=== PATIENT | male | born 1950 | race Caucasian/White ===

== ENCOUNTER 2017-06-23 10:31 | Inpatient (IN) | payer OTHER ==
[2017-06-23 11:20] LABS: PLATELET COUNT 276 10^3/uL (150-400)
--- NOTE | 2017-06-23 13:02 | EDPHY ---
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 The patient is fitted with a prosthetic device. He presents to the ED with complaints of increased pain and irritation to his left lateral tib-fib area. The patient reports that he believes the area has become inflamed and irritated secondary to his device not fitting properly. The patient reportedly is wearing multiple socks in order to achieve a good fit. The patient reports that he is currently in between primary care providers. He has a number of chronic medical problems and reportedly is chronically anticoagulated. The patient denies a history of fall or trauma. He denies fever. He denies cough, congestion or additional complaints of rash or arthralgias. REVIEW OF SYSTEMS: A comprehensive 10 point review of systems is otherwise negative aside from elements mentioned in the history of present illness. Source: Patient Exam Limitations: No limitations - Personal History Current Tetanus Diphtheria and Acellular Pertussis (TDAP): Yes - Medical/Surgical History Hx Asthma: No Hx Chronic Respiratory Disease: No Hx Diabetes: Yes Hx Cardiac Disease: Yes Hx Renal Disease: Yes Hx Cirrhosis: No Hx Alcoholism: Yes Hx HIV/AIDS: No Hx Splenectomy or Spleen Trauma: No Other PMH: afib,etoh, dm, afib. foot ulcers. neuropathy - Social History Smoking Status: Current every day smoker - Physical Exam Exam: General Appearance: Alert, no distress Eyes: Pupils equal and round no pallor or injection ENT, Mouth: Mucous membranes moist Respiratory: There are no retractions, lungs are clear to auscultation Cardiovascular: Regular rate and rhythm Gastrointestinal: 5/5 strength all 4 extremities Neurological: A&O, normal motor function, normal sensory exam, normal cranial nerves Skin: Very mild erythematous changes noted over the left lateral proximal fibula, no fluctuance, no skin breakdown Musculoskeletal: Neck is supple nontender Extremities: Left BKA Psychiatric: Patient is oriented X 3, there is no agitation Constitutional: Initial Vital Signs Temperature (C) 36.8 C 06/23/17 10:39 Heart Rate 73 06/23/17 10:39 Respiratory Rate 16 06/23/17 10:39 Blood Pressure 142/92 H 06/23/17 10:39 O2 Sat (%) 99 06/23/17 10:39 O2 Delivery Mode Room Air Allergies/Adverse Reactions: No Known Allergies Allergy (Verified 11/03/15 07:32) Home Medications: Medication Instructions Recorded DILTIAZEM HCL [DILTIAZEM 24HR ER] 180 mg PO HS 05/28/15 Digoxin [Lanoxin 125 mcg (RX)] 125 mcg PO DAILY10 11/03/15 Warfarin Sodium [Coumadin 2MG (*)] 2 mg PO DAILY16 11/03/15 Furosemide [Lasix 20 MG (*)] 20 mg PO DAILY #7 tab 11/09/15 Furosemide [Lasix 20 MG (*)] 20 mg PO DAILY #8 tab 11/16/15 Doxycycline Hyclate [Vibramycin 100 mg PO BID #20 cap 06/23/17 100 MG (*)] Medical Decision Making - Diagnostics Imaging Results: Imaging Impressions Tibia/Fibula X-Ray 06/23/17 10:58 Impression: No evidence of osteomyelitis,, fracture, subcutaneous gas or foreign body. ED Course/Re-evaluation: The patient presents to the ED with complaints of very mild erythema and tenderness at his left fibula amputation site. He is afebrile in no acute distress. His x-ray is unremarkable. The patient is noted to have mild leukocytosis. The patient is having quite a bit of discomfort putting on his prosthesis. The patient states the symptoms have developed over the past day. The patient is currently very limited in his ability to get outpatient resources. I do feel that he should be admitted to the hospital for further evaluation of his symptoms, possible evaluation by the prosthetic supplier and to get an MRI to evaluate for possible deep space infection. Consultation was made with the hospitalist service at 3:00 p.m.. The patient will be admitted by Dr. Dave. An MRI without contrast was ordered given his renal insufficiency. Differential Diagnosis: Differential diagnosis considered includes occult fracture, cellulitis, abscess , chronic pain syndrome - Data Points Laboratory Results: Laboratory Results 06/23/17 11:15 06/23/17 11:15 06/23/17 06/23/17 06/23/17 11:18 11:15 11:15 WBC 18.36 10^3/uL H 10^3/uL (3.80-9.50) RBC 4.82 10^6/uL 10^6/uL (4.40-6.38) Hgb 13.7 g/dL g/dL (13.7-17.5) Hct 41.9 % % (40.0-51.0) MCV 86.9 fL fL (81.5-99.8) MCH 28.4 pg pg (27.9-34.1) MCHC 32.7 g/dL g/dL (32.4-36.7) RDW 14.1 % % (11.5-15.2) Plt Count 276 10^3/uL 10^3/uL (150-400) MPV 9.9 fL fL (8.7-11.7) Neut % (Auto) 88.0 % H % (39.3-74.2) Lymph % (Auto) 6.0 % L % (15.0-45.0) [place] % (Auto) 4.6 % % (4.5-13.0) Eos % (Auto) 0.2 % L % (0.6-7.6) Baso % (Auto) 0.4 % % (0.3-1.7) Nucleat RBC Rel Count 0.0 % % (0.0-0.2) Absolute Neuts (auto) 16.16 10^3/uL H 10^3/uL (1.70-6.50) Absolute Lymphs (auto) 1.11 10^3/uL 10^3/uL (1.00-3.00) Absolute Monos (auto) 0.84 10^3/uL H 10^3/uL (0.30-0.80) Absolute Eos (auto) 0.03 10^3/uL 10^3/uL (0.03-0.40) Absolute Basos (auto) 0.08 10^3/uL 10^3/uL (0.02-0.10) Absolute Nucleated RBC 0.00 10^3/uL 10^3/uL (0-0.01) Immature Gran % 0.8 % % (0.0-1.1) Immature Gran # 0.14 10^3/uL H 10^3/uL (0.00-0.10) PT 28.5 SEC H SEC (12.0-15.0) INR 2.69 H (0.83-1.16) Sodium 138 mEq/L mEq/L (135-145) Potassium 4.9 mEq/L mEq/L (3.5-5.2) Chloride 109 mEq/L mEq/L (97-110) Carbon Dioxide 18 mEq/l L mEq/l (22-31) Anion Gap 11 mEq/L mEq/L (8-16) BUN 23 mg/dL mg/dL (7-23) Creatinine 1.6 mg/dL H mg/dL (0.7-1.3) Estimated GFR 43 Glucose 105 mg/dL H mg/dL (70-100) Calcium 8.2 mg/dL L mg/dL (8.5-10.4) Departure - Departure Disposition: [facility] Acute Clinical Impression: Leg pain Condition: Good Referrals: [facility],. [Clinic] - As per Instructions Prescriptions: Doxycycline Hyclate [Vibramycin 100 MG (*)] 100 mg PO BID #20 cap
[2017-06-23 13:44] LABS: INR 2.69 (0.83-1.16); PROTIME(PATIENT) 28.5 SEC (12.0-15.0)
[2017-06-23] MEDS ORDERED: ONDANSETRON 4 MG/2 ML VIAL IVP PRN (15:11)
[2017-06-23] MEDS ORDERED: ONDANSETRON DISINTEGRATING 4 MG TAB PO PRN (15:11)
--- NOTE | 2017-06-23 15:15 | ASMTCMCOM ---
CM Note CM Note Notes: CM met with patient to assure follow up and/or access to PCP. Patient reports that although he has recently relocated to [place] from [place], he did have an appointment at the [facility] last month. I have called [facility] and confirmed that patient had 2 appointments at the clinic in May; 06/[address]Rachel Burnham, and 06/05 for an RN appointment. Per Janel ([facility]), patient attended an appointment in April as well. His medications, including Warfarin are prescribed through the clinic. Patient states that he has been staying at a friend of his daughter's apartment for the time being. I have provided him with information regarding the coordinated entry program and [facility] for assistance with community resources Date Signed: 06/23/2017 03:14 PM Electronically Signed By:Carolina Marquez RN
[2017-06-23] MEDS ORDERED: D50W 25 GM/50 ML SYR IVP PRN (15:17)
[2017-06-23] MEDS ORDERED: ALBUTEROL 60 PUFFS/8 GM MDI IH PRN (16:06)
[2017-06-23] MEDS ORDERED: NS 1,000 ML IV SCH (16:15)
--- NOTE | 2017-06-23 16:45 | GHP ---
[f rep st] HISTORY AND PHYSICAL DATE OF ADMISSION: 06/23/2017 CHIEF COMPLAINT: Pain, swelling at left fibula and proximal to prior amputation. HISTORY OF PRESENT ILLNESS: A 67-year-old male with history of left BKA secondary to foot infection, atrial fibrillation, MR, presenting with increased pain and irritation to the left lateral tib-fib a nikolas. He states that this has been going on for 2-3 days to the point where he cannot wear his prosth esis. He says he jumps with touch due to pain. Prosthesis was last replaced January 04 by [employer] in [place]. Says that he has lost a lot of weight in the last couple months, thus has been wearing multiple pairs of socks, thinks it has been rubbing. He last saw [employer] a week ago, and they plan to create a new mold. He has a followup appointment this Thursday. Denies any fevers, c hills, or sweats. Intermittent vomiting for the past 2 weeks, but no blood. He had intermittent loo se stools. No myalgias. No chest pain or shortness of breath. He has a chronic cough with clear sp utum. Has lost 15-20 pounds in last few months. He was previously staying at the [facility], but now is living with some friends. He has had decreased p.o. intake and just has not been eating much. He denies night sweats. REVIEW OF SYSTEMS: I completed a 10-point review of systems, negative except as noted in HPI. PAST MEDICAL HISTORY: 1. E coli UTI. 2. Diabetes 2, diet-controlled. 3. Chronic atrial fibrillation, on AC. 4. Peripheral neuropathy. 5. Echocardiogram May 2015 showed EF of 50%, biatrial enlargement, moderate MR. 6. BPH. 7. GERD. PAST SURGICAL HISTORY: Left BKA, pacemaker in September 2016, bilateral cataract surgery, right 2nd toe a mputation. SOCIAL HISTORY: Smokes at least a pack a day for 53 years. No alcohol. Occasional marijuana. Was previously living at [facility], but now is staying with some daughter's friends. FAMILY HISTORY: An uncle with CVA. Brother with NH. ALLERGIES: None. HOME MEDICATIONS: Tamsulosin 0.5 mg q.h.s., omeprazole 20 mg daily, gabapentin 300 mg b.i.d., PhosLo 667 mg p.o. t.i.d. meals, prednisone, Coumadin 2-3 mg daily, Lasix 40 daily, Tylenol as needed. PHYSICAL EXAM: VITAL SIGNS: Temperature is 36.4, blood pressure 119/71, heart rate in the 70s, resp irations 16, 97% on room air. GENERAL: Disheveled, sitting up in bed, no acute distress. HEENT: P ERRLA. Dry mucous membranes. Poor group home. CV: Regular rate and rhythm. No lower extremity franco ma. LUNGS: Coarse breath sounds. Mild expiratory wheezing. No crackles. GI: Soft, nontender, no ndistended. Positive bowel sounds. : No Alba. MUSCULOSKELETAL: Right foot 2nd toe amputation. First toe with a scabbed ulcer. Left BKA. There is area of mild erythema on the lateral aspect of tib-fib with tenderness with palpation. No real warmth. NEURO: 2 through 12 intact. Decreased sen sation over right foot. PSYCH: Alert and oriented x3. LABORATORY DATA: WBC is 18, hemoglobin 13, hematocrit 41, platelets 276. INR is 2.6. PT is 28. So dium 138, potassium 4.9, chloride 109, carbon dioxide 18, creatinine is 1.6, baseline of 1.2 to 1.3, glucose is 105, calcium is 8.2. CRP, ESR pending. Tib-fib x-ray: No evidence of osteomyelitis, fracture. MRI is pending. Blood cultures are pending. ASSESSMENT AND PLAN: 1. Left tibial-fibular pain: I suspect this is actually due to a poor fitting prosthesis. He has a n appointment with the [employer] on Thursday for a new mold. I have a low suspicion for infection . There is a mild area of erythema, but suspect this is just more due to friction. We will hold off on antibiotics now as is afebrile. Does have a white count, but I suspect this is more due to dehyd ration. We will reassess. X-ray did not show any evidence of fracture, osteomyelitis, or subcutaneo us gas. MRI is pending. 2. Physical therapy, occupational therapy. Followup with his prosthesis company as scheduled. 3. Controlled diabetes, not on medications. Sliding scale here. 4. Permanent atrial fibrillation, on Coumadin. INR is at goal. We will resume this. 5. Peripheral neuropathy. Continue gabapentin. 6. Moderate mitral regurgitation. No evidence of volume overload, actually appears dry. 7. Acute kidney injury on chronic kidney disease: He has decreased by mouth intake with continuous Lasix pill. We will hydrate gently here. Repeat BMP in the morning. Check urine lytes. 8. Tobacco abuse: Nicotine patch. 9. Weight loss. Says that he has had decreased appetite. Denies bloody or black stools. Check pre albumin, LFTs, TSH. 10. Diet: Regular. 11. Deep venous thrombosis prophylaxis: He is on Coumadin. 12. Disposition: Patient warrants observation admission given acute leg pain, warranting physical t herapy, occupational therapy, further imaging. /[id number]/MODL
[2017-06-23] MEDS: INSULIN LISPRO 100 UNIT/ML SC SCH (18:39)
[2017-06-23] MEDS: CALCIUM ACETATE 667 MG CAP PO SCH (19:10)
[2017-06-23] MEDS: NICOTINE 21 MG/24 HR PATCH TD SCH (19:10)
[2017-06-23] MEDS: WARFARIN SODIUM 2 MG TAB PO SCH (19:10)
[2017-06-23] MEDS: TAMSULOSIN HCL 0.4 MG CAP PO SCH (20:05)
[2017-06-23] MEDS: GABAPENTIN 300 MG CAP PO SCH (20:05)
[2017-06-23] MEDS: ACETAMINOPHEN 325 MG TAB PO PRN (20:31)
[2017-06-24 06:46] LABS: INR 2.59 (0.83-1.16); PROTIME(PATIENT) 27.7 SEC (12.0-15.0)
[2017-06-24] MEDS: PANTOPRAZOLE SODIUM 40 MG TAB PO SCH (10:40)
[2017-06-24] MEDS: CALCIUM ACETATE 667 MG CAP PO SCH ×3 (10:40→18:15)
[2017-06-24] MEDS: GABAPENTIN 300 MG CAP PO SCH ×2 (10:40→19:52)
[2017-06-24] MEDS: ACETAMINOPHEN 325 MG TAB PO PRN ×2 (10:40→18:14)
[2017-06-24] MEDS: NICOTINE 21 MG/24 HR PATCH TD SCH (10:40)
[2017-06-24] MEDS: INSULIN LISPRO 100 UNIT/ML SC SCH ×3 (10:43→18:25)
--- NOTE | 2017-06-24 12:17 | HOSPPROG ---
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 He also has underlying atrial fibrillation moderate mitral regurgitation. Today is my 1st encounter with the patient chart reviewed. Reviewed his care with his nurse. * left tibial fibular pain -the x-ray showed no evidence of osteomyelitis or fracture -will get a CT scan/ has significant pain to the left outer edge above the amputation site/has a pacer so unable to do an MRI -unable to wear prosthesis due to the pain * permanent atrial fibrillation -on Coumadin, INR is therapeutic at 2.59 * peripheral neuropathy -on gabapentin * acute kidney injury on chronic kidney disease -creatinine is 1.4 * nicotine dependence -has a patch in place -reviewed w him the importance of stopping smoking/ doubt he will quit * weight loss with failure to thrive -in talking with the nursing staff he has been stain with his daughters friends. He has not been getting enough oral intake. Will discuss with case management -TSH and liver enzymes are stable -he says he may not be able to live with them because of the stairs, has been sleeping on main floor on a cough * diabetes -glucoses are slightly elevated * anemia -reviewed his past medical history and this is close to his baseline *Plan: he is having significant pain, needs further evaluation for left lower extremity; will require another midnight stay making him IP. Will continue following labs and further evaluation of CT scan. Subjective: Kenn is c/o dry left eye, says his left lower stump area is painful and tender. Objective: Vital Signs Temp Pulse Resp BP Pulse Ox 36.9 C 76 20 132/80 H 99 06/24/17 11:13 06/24/17 11:13 06/24/17 11:13 06/24/17 11:13 06/24/17 11:13 Laboratory Results 06/24/17 06:20 06/24/17 06:20 06/23/17 06/24/17 06/25/17 05:59 05:59 05:59 Intake Total 100 Balance 100 PT 27.7 SEC (12.0-15.0) H 06/24/17 06:20 INR 2.59 (0.83-1.16) H 06/24/17 06:20 - Physical Exam Constitutional: unkempt Eyes: PERRL Ears, Nose, Mouth, Throat: poor dentition Cardiovascular: regular rate and rhythym Respiratory: no respiratory distress, reduced air movement Gastrointestinal: normoactive bowel sounds Skin: warm, other (lateral aspect of left stump area with tenderness w palp, has some swelling noted) Musculoskeletal: generalized weakness Neurologic: AAOx3 Psychiatric: interacting appropriately, thought process linear ICD10 Worksheet Patient Problems: Problems Problem Status Onset Leg pain Acute Acute bronchitis Acute Atrial fibrillation with rapid ventricular response Acute Chronic Disease Mgmt/Transitional Care Acute Congestive heart failure Acute ESBL (extended spectrum beta-lactamase) producing bacteria infection Acute Foot ulcer due to secondary DM Acute Sepsis Acute UTI (urinary tract infection) Acute
[2017-06-24] MEDS ORDERED: IOPAMIDOL (ISOVUE-300) 100 ML BTL ONE (14:07)
--- NOTE | 2017-06-24 15:57 | ASMTCMCOM ---
CM Note CM Note Notes: SNF has been recommended for patient. He was at the [facility] a year ago after his left BKA. He is OK with a referral to that facility, as well as other facilities near [place]. He has a daughter in [place]. I sent referrals to [facility], [facility], [facility], and [facility]. Case Management will follow. Date Signed: 06/24/2017 03:56 PM Electronically Signed By:Manasa Hilton RN
[2017-06-24] MEDS ORDERED: NS 500 ML IV SCH (16:30)
[2017-06-24] MEDS: WARFARIN SODIUM 2 MG TAB PO SCH (16:41)
[2017-06-24] MEDS: WARFARIN SODIUM 1 MG TAB PO SCH (16:41)
--- NOTE | 2017-06-24 16:51 | PDMN ---
Medical Necessity Medical necessity: Change to IP, as of 06/24/17, per [employer]; los >2 mn for ongoing management of significant L tibial fibular pain & weight loss w/failure to thrive; admit for further workup/evaluation, pain management, IVFs & therapies; per progress note & order 06/24/17
[2017-06-24] MEDS: CARBOXYMETHYLCELLULOSE 0.5% 0.4 ML DROPERETTE EACHEYE PRN (18:15)
--- NOTE | 2017-06-24 18:33 | WOCRNPDOC ---
WOCRN Advanced Assessment Note - Skin Integrity Problem, Advanced Assess Right First Toe Dressing Type: Open to Air Site Measurement - Head-to-Toe Length X Width X Depth (cm): smaller than 0.5x0.5x0.1 Skin Integrity Problem Comment: Small partial thickness skin tear on toe per RN Kimberley and telehealth photo. Treat with silvasorb and Allevyn life dressing or bandaid. Wound care will sign off.
[2017-06-24] MEDS: TAMSULOSIN HCL 0.4 MG CAP PO SCH (19:52)
[2017-06-25] MEDS: ACETAMINOPHEN 325 MG TAB PO PRN ×3 (03:02→20:42)
[2017-06-25] MEDS: CARBOXYMETHYLCELLULOSE 0.5% 0.4 ML DROPERETTE EACHEYE PRN (03:02)
[2017-06-25 05:47] LABS: INR 2.31 (0.83-1.16); PROTIME(PATIENT) 25.4 SEC (12.0-15.0)
[2017-06-25] MEDS: INSULIN LISPRO 100 UNIT/ML SC SCH ×3 (09:04→17:30)
[2017-06-25] MEDS: PANTOPRAZOLE SODIUM 40 MG TAB PO SCH (09:04)
[2017-06-25] MEDS: GABAPENTIN 300 MG CAP PO SCH ×2 (09:04→20:42)
[2017-06-25] MEDS: CALCIUM ACETATE 667 MG CAP PO SCH ×3 (09:04→17:30)
[2017-06-25] MEDS: NICOTINE 21 MG/24 HR PATCH TD SCH (09:04)
[2017-06-25] MEDS: predniSONE 5 MG TAB PO SCH (11:51)
[2017-06-25] MEDS: WARFARIN SODIUM 2 MG TAB PO SCH (15:45)
--- NOTE | 2017-06-25 16:20 | HOSPPROG ---
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 He also has underlying atrial fibrillation moderate mitral regurgitation. * left tibial fibular pain -the x-ray showed no evidence of osteomyelitis or fracture -CT scan shows a suprapatellar effusion/spoke w Dr Mcintyre to come evaluate/ pain is more to the left of the tib/fib area -unable to wear prosthesis due to the pain * permanent atrial fibrillation -on Coumadin, INR is therapeutic at 2.31 *arthritis -patient has been on prednisone for multiple years -said pain has been increasing, will resume * peripheral neuropathy -on gabapentin * acute kidney injury on chronic kidney disease -creatinine is 1.4 * nicotine dependence -has a patch in place -reviewed w him the importance of stopping smoking/ doubt he will quit * weight loss with failure to thrive -issue has been lack of access to food, has had trouble getting around from the above -plan is to go to SNF * diabetes -glucoses are slightly elevated * anemia -reviewed his past medical history and this is close to his baseline -he is trending down a bit today, will heme stools and recheck h/h in a.m. *Plan: Dr Mcintyre to see, restart prednisone, heme stools, recheck labs in a.m. Subjective: Kenn said he he 'sore' everywhere, take prednisone to help with pain. Objective: Vital Signs Temp Pulse Resp BP Pulse Ox 36.4 C 86 20 131/82 H 97 06/25/17 11:29 06/25/17 11:29 06/25/17 11:29 06/25/17 11:29 06/25/17 11:29 Laboratory Results 06/25/17 04:56 06/25/17 04:56 06/24/17 06/25/17 06/26/17 05:59 05:59 05:59 Intake Total 400 Output Total 500 Balance -100 PT 25.4 SEC (12.0-15.0) H 06/25/17 04:56 INR 2.31 (0.83-1.16) H 06/25/17 04:56 - Physical Exam Constitutional: chronically ill appearing, uncomfortable, No not in pain (hands , overall body aches from arthritis) Eyes: PERRL Ears, Nose, Mouth, Throat: hard of hearing Cardiovascular: regular rate and rhythym Respiratory: no respiratory distress, reduced air movement Skin: warm Musculoskeletal: generalized weakness Neurologic: AAOx3 Psychiatric: interacting appropriately ICD10 Worksheet Patient Problems: Problems Problem Status Onset Leg pain Acute Acute bronchitis Acute Atrial fibrillation with rapid ventricular response Acute Chronic Disease Mgmt/Transitional Care Acute Congestive heart failure Acute ESBL (extended spectrum beta-lactamase) producing bacteria infection Acute Foot ulcer due to secondary DM Acute Sepsis Acute UTI (urinary tract infection) Acute
--- NOTE | 2017-06-25 16:56 | ASMTCMCOM ---
CM Note CM Note Notes: Spoke w/pt re; dc SNF. Pt accepted by [facility], pt would like to go to [facility], Izzy notified. Pt is supposed to get a refitting on his prosthetic tomorrow, he called [facility] to let them know he is in hospital. He was unsure if they were coming tomorrow, CM called and tried to leave message but unable to do so. Will follow up in am. DC Plan: [facility] Date Signed: 06/25/2017 04:55 PM Electronically Signed By:Johana Ricketts RN
--- NOTE | 2017-06-25 19:15 | GCON ---
[f rep st] CONSULTATION DATE OF CONSULTATION: 06/25/2017 CHIEF COMPLAINT: Left stump pain. HISTORY OF PRESENT ILLNESS: The patient is a 67-year-old male with a fairly recent left below-knee a mputation. He had been doing well with his socket; however, states he has been losing a lot of weigh t recently, was having to use more and more socks and in so doing, developed pain on the lateral port ion of his stump below the knee to the point he was unable to wear the leg effectively. I was asked to see the patient in the hospital for further evaluation. PHYSICAL EXAMINATION: EXTREMITIES: The patient has well-healed scars associated with a BK amputatio n. He has ample skin coverage and muscle coverage to the stump associated with the fibula and the ti rizwana. He does have some free motion to the fibula itself. He is tender at the head of the fibula and along the peroneal groove. Distally, along the distal half of the fibula, he is much less tender bhandari ggesting he has pressure pain associated with the fibular head and with the peroneal nerve as it cour ses around the neck of the fibula. Otherwise, has good range of motion through the knee with good mu scular control through the quadriceps and hamstrings associated with the below-knee amputation. X-ray exam reveals no gross bony deformities. CT exam reveals no gross bony deformities, no abscesse s, no overt collections of fluid. He does show signs of continued vascular disease. ASSESSMENT AND PLAN: Patient is status post painful left below-knee amputation stump. He is to not wear anything on the stump for the next several days to weeks in order to allow the skin and bone to have a chance to decrease their sensitivity and for the nerve to settle down. Once this occurs and t he stump is in a stable place, he then may have the stump remolded for a new socket. He should pattie nue to try and wear socks on the stump in order to maintain its shape but once he is able to tolerate having any covering on the area of the fibular head and the fibular shaft and again, once this is st able, then he can have a new socket remolded. If there are any further questions, please feel free t o contact me at [phone]. /[id number]/MODL
[2017-06-25] MEDS: TAMSULOSIN HCL 0.4 MG CAP PO SCH (20:42)
[2017-06-26 05:26] LABS: INR 2.47 (0.83-1.16); PROTIME(PATIENT) 26.7 SEC (12.0-15.0)
[2017-06-26] MEDS: GABAPENTIN 300 MG CAP PO SCH ×2 (08:11→20:06)
[2017-06-26] MEDS: CALCIUM ACETATE 667 MG CAP PO SCH ×3 (08:11→17:19)
[2017-06-26] MEDS: INSULIN LISPRO 100 UNIT/ML SC SCH ×3 (08:11→17:46)
[2017-06-26] MEDS: NICOTINE 21 MG/24 HR PATCH TD SCH (08:11)
[2017-06-26] MEDS: PANTOPRAZOLE SODIUM 40 MG TAB PO SCH (08:11)
[2017-06-26] MEDS: predniSONE 5 MG TAB PO SCH (08:11)
[2017-06-26] MEDS: WARFARIN SODIUM 2 MG TAB PO SCH (15:51)
[2017-06-26] MEDS: TAMSULOSIN HCL 0.4 MG CAP PO SCH (20:06)
[2017-06-27 08:03] VITALS: RESP 18
[2017-06-27] MEDS: INSULIN LISPRO 100 UNIT/ML SC SCH ×3 (08:50→17:44)
[2017-06-27] MEDS: GABAPENTIN 300 MG CAP PO SCH (08:51)
[2017-06-27] MEDS: PANTOPRAZOLE SODIUM 40 MG TAB PO SCH (08:51)
[2017-06-27] MEDS: predniSONE 5 MG TAB PO SCH (08:51)
[2017-06-27] MEDS: NICOTINE 21 MG/24 HR PATCH TD SCH (08:51)
[2017-06-27] MEDS: CALCIUM ACETATE 667 MG CAP PO SCH ×2 (08:51→15:12)
--- NOTE | 2017-06-27 11:39 | HOSPPROG ---
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 He also has underlying atrial fibrillation moderate mitral regurgitation. * left tibial fibular pain -the x-ray showed no evidence of osteomyelitis or fracture -appreciate Dr Mcintyre * permanent atrial fibrillation -on Coumadin *arthritis -patient has been on prednisone for multiple years -said pain has been increasing, will resume * peripheral neuropathy -on gabapentin * acute kidney injury on chronic kidney disease -creatinine is 1.5 * nicotine dependence -has a patch in place -reviewed w him the importance of stopping smoking/ doubt he will quit * weight loss with failure to thrive -issue has been lack of access to food, has had trouble getting around from the above -plan is to go to SNF * diabetes -glucoses are slightly elevated * anemia -reviewed his past medical history and this is close to his baseline -he is trending down a bit today, will heme stools and recheck h/h in a.m. *Plan: dc [facility] on thursday Subjective: Kenn has no complaints but concerned about his daughter. Objective: Vital Signs Temp Pulse Resp BP Pulse Ox 36.4 C 72 18 112/68 99 06/27/17 07:57 06/27/17 07:57 06/27/17 07:57 06/27/17 07:57 06/27/17 07:57 Laboratory Results 06/26/17 04:55 06/26/17 04:55 06/26/17 06/27/17 06/28/17 05:59 05:59 06:59 Intake Total 1005 486 Output Total 250 625 Balance 755 -139 PT 26.7 SEC (12.0-15.0) H 06/26/17 04:55 INR 2.47 (0.83-1.16) H 06/26/17 04:55 - Physical Exam Constitutional: chronically ill appearing Eyes: PERRL, EOMI Cardiovascular: regular rate and rhythym Respiratory: no respiratory distress, reduced air movement Skin: warm Musculoskeletal: generalized weakness Neurologic: AAOx3 Psychiatric: interacting appropriately ICD10 Worksheet Patient Problems: Problems Problem Status Onset Leg pain Acute Acute bronchitis Acute Atrial fibrillation with rapid ventricular response Acute Chronic Disease Mgmt/Transitional Care Acute Congestive heart failure Acute ESBL (extended spectrum beta-lactamase) producing bacteria infection Acute Foot ulcer due to secondary DM Acute Sepsis Acute UTI (urinary tract infection) Acute
--- NOTE | 2017-06-27 11:43 | HOSPPROG ---
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 He also has underlying atrial fibrillation moderate mitral regurgitation. * left tibial fibular pain -the x-ray showed no evidence of osteomyelitis or fracture -appreciate Dr Mcintyre -prosthesis likely not fitting correctly due to weight loss and recent BKA * permanent atrial fibrillation -on Coumadin *arthritis -patient has been on prednisone for multiple years -said pain has been increasing, will resume * peripheral neuropathy -on gabapentin * acute kidney injury on chronic kidney disease -creatinine is 1.5 * nicotine dependence -has a patch in place -reviewed w him the importance of stopping smoking/ doubt he will quit * weight loss with failure to thrive -issue has been lack of access to food, has had trouble getting around from the above -plan is to go to SNF * diabetes -glucoses are slightly elevated * anemia -reviewed his past medical history and this is close to his baseline -he is trending down a bit today, will heme stools and recheck h/h in a.m. *Plan: dc to [facility] Subjective: Kenn has no c/o pain. Objective: Vital Signs Temp Pulse Resp BP Pulse Ox 36.4 C 72 18 112/68 99 06/27/17 07:57 06/27/17 07:57 06/27/17 07:57 06/27/17 07:57 06/27/17 07:57 Laboratory Results 06/26/17 04:55 06/26/17 04:55 06/26/17 06/27/17 06/28/17 05:59 05:59 06:59 Intake Total 1005 486 Output Total 250 625 Balance 755 -139 PT 26.7 SEC (12.0-15.0) H 06/26/17 04:55 INR 2.47 (0.83-1.16) H 06/26/17 04:55 - Physical Exam Constitutional: not in pain, chronically ill appearing Eyes: PERRL Ears, Nose, Mouth, Throat: hearing normal Respiratory: no respiratory distress Skin: warm Musculoskeletal: generalized weakness Neurologic: AAOx3 Psychiatric: interacting appropriately, not anxious ICD10 Worksheet Patient Problems: Problems Problem Status Onset Leg pain Acute Acute bronchitis Acute Atrial fibrillation with rapid ventricular response Acute Chronic Disease Mgmt/Transitional Care Acute Congestive heart failure Acute ESBL (extended spectrum beta-lactamase) producing bacteria infection Acute Foot ulcer due to secondary DM Acute Sepsis Acute UTI (urinary tract infection) Acute
--- NOTE | 2017-06-27 11:55 | PDIAF ---
- Diagnosis Diagnosis: left stump pain, diabetes, copd Code Status: Full Code - Medication Management Discharge Medications: Medications to Continue on Transfer Acetaminophen [Tylenol 325mg (*)] 650 mg PO Q6H PRN 06/23/17 [Last Taken Unknown ] Calcium Acetate [Phoslo (*)] 667 mg PO TIDMEAL 06/23/17 [Last Taken 06/22/17] Furosemide [Lasix 40 MG (*)] 40 mg PO DAILY 06/23/17 [Last Taken 06/22/17] Gabapentin [Neurontin 300 MG (*)] 300 mg PO BID 06/23/17 [Last Taken 06/22/17] Omeprazole 20 mg PO DAILY 06/23/17 [Last Taken Unknown] Tamsulosin HCl [Flomax 0.4 MG (*)] 0.4 mg PO HS 06/23/17 [Last Taken Unknown] Warfarin Sodium [Coumadin 1MG (*)] 2 - 3 mg PO AD 06/23/17 [Last Taken 06/22/17 2MG] predniSONE 5 mg PO Q2D 06/23/17 [Last Taken 06/23/17] Albuterol [Proventil Inhaler HFA (*)] 1 - 2 puffs IH Q4HRS PRN mdi 06/27/17 [ Last Taken Unknown] Carboxymethylcellulose 0.5% [Refresh Plus Drops 0.5%] 1 lolly EACHEYE Q6HRS PRN droperette 06/27/17 [Last Taken Unknown] Nicotine [Nicoderm Cq 21 mg (*)] 21 mg TD DAILY patch 06/27/17 [Last Taken Unknown] Discharge Medications: Refer to the Discharge Home Medication list for PRN reason. - Orders Services needed: Physical Therapy, Occupational Therapy Isolation Type: None Diet Recommendation: ADA 2000 consistent carb Diet Texture: Regular Texture Diet Additional: In regards to the patient's left [id number] amputation stump, he is not to wear anything on the stump for the next 2 weeks in order to allow the skin and bone to have a chance to decreased sensitivity and nerve to settle down. Once this occurs and the stump is a stable place he may have the stump remolded for a new socket. The patient is to continue to try to wear socks on the stump in order to maintain its shape. Recommendation is approximately 2 weeks to get the prosthesis fit correctly - Labs/Radiology BMP Date: 06/29/17 CBC w/diff Date: 06/29/17 PT/INR Date: 06/29/17 (weekly) - Follow Up Care Current Providers and Referrals: [facility],. [Clinic] - As per Instructions
--- NOTE | 2017-06-27 12:12 | ASMTLACE ---
ALICIAE Length of stay for Answers: 4-6 days current admission Acuity / Level of Answers: Yes Care: Did the patient have an inpatient admission? Comorbidities - select Answers: Diabetes (uncontrolled or all that apply controlled) Moderate or severe liver or renal disease Other Notes: peripheral neuropathy # of Emergency department Answers: 1-2 visits in the last 6 months Social determinants Answers: History of substance abuse (ETOH, street drugs, prescription drugs, etc.) Homelessness (street, prison) Score: 20 Date Signed: 06/27/2017 12:12 PM Electronically Signed By:Johana Ricketts RN
--- NOTE | 2017-06-27 15:57 | GDS ---
[f rep st] DISCHARGE SUMMARY DISCHARGE DIAGNOSES: 1. Left tibia-fibula pain at the stump site. 2. Permanent atrial fibrillation. 3. Arthritis. 4. Peripheral neuropathy. 5. Acute kidney injury on chronic kidney disease. 6. Nicotine dependence. 7. Weight loss with failure to thrive. 8. Diabetes. 9. Anemia. HISTORY: Briefly, the patient is a 67-year-old male with a history of left BKA secondary to a foot i nfection. He also has underlying atrial fibrillation, moderate mitral regurgitation. He came to the emergency room because he was having pain at his left stump site. He was seen and evaluated by Dr. Mcintyre. He had a tibia/fibula x-ray performed that showed no evidence of osteomyelitis, fracture, or s ubcutaneous gas, or foreign body. CT scan was performed for further evaluation. This noted no absce ss, subcutaneous gas, or evidence of osteomyelitis. He has osteoarthritis and knee effusion. Subseq uently, he was seen by Dr. Lianet Mcintyre, who noted that the patient has had significant weight loss, whi ch affects his prosthesis fitting him correctly. His recommendation was to not to wear anything on t he stump for the next several days to weeks in order to allow the skin and bone to heal, and decrease the sensitivity for the nerve to settle down. Once this occurs and the stump is in a stable place, he can have the stump remolded for a new socket. It was recommended tat he wear a sock on the stump. The patient is feeling markedly better today. He will go to [facility] for rehabilitation, and also recommendation for him to get followup with [facility] to get his prosthesis fitted better. HOSPITAL COURSE: 1. Left tibial fibular pain, likely the prosthesis has not been fitting well, especially with weight loss and his recent BKA. Recommendations per Dr. Mcintyre. 2. Permanent atrial fibrillation, on Coumadin. 3. Arthritis. Resumed his prednisone. 4. Peripheral neuropathy, on gabapentin. 5. Acute kidney injury. Most recent creatinine is 1.5. 6. Nicotine dependence, has a patch in place. 7. Weight loss with thyroid to thrive. The home he has been living in he has to go up the stairs, a nd could not get up and down. He will go to a detention facility for rehab. 8. Diabetes. Glucoses are elevated, have this monitored in the outpatient setting. 9. Anemia. He is close to his baseline. We will have this followed. DISCHARGE CONDITION: Stable. Blood pressure is 112/68, respiratory rate is 18, pulse 72, temperatur e 36.4 Celsius, O2 saturation on room air 99%. MEDICATIONS AT DISCHARGE: Please see the EMR. DISCHARGE INSTRUCTIONS: 1. Follow up with [facility] to get his prosthesis fitting better. 2. To monitor his INR at the rehab facility. 3. If he develops fever, chills, chest pain, or shortness of breath, return to the ER. Greater than 30 minutes discharging and coordinating care. /[id number]/MODL
[2017-06-27 16:01] VITALS: BP 140/102; PULSE 82; TEMP 98.2; O2SAT 98
[2017-06-27] MEDS: WARFARIN SODIUM 1 MG TAB PO SCH (16:25)
[2017-06-27] MEDS: WARFARIN SODIUM 2 MG TAB PO SCH (16:25)
--- NOTE | 2017-06-27 16:54 | ASMTCMCOM ---
CM Note CM Note Notes: Pt discharging to [facility] notified, transport to [employer] at 6:30. Final orders faxed, RN to call report. Pt given clothes for transport. Date Signed: 06/27/2017 04:53 PM Electronically Signed By:Johana Ricketts RN
--- NOTE | 2017-06-28 18:02 | ASDISCHSUM ---
Discharge Information Plan Status:SNF Medically Cleared to Leave:06/26/2017 Discharge Date:06/27/2017 06:18 PM CM D/C Disposition:Halfway Facility ADT D/C Disposition:Halfway Facility Projected Discharge Date:06/26/2017 11:00 AM Transportation at D/C:[facility] Discharge Delay Reason: Follow-Up Date:06/26/2017 11:00 AM Discharge Slot: Final Diagnosis: Placement Information Referral Type:*Half-Way/SNF Referral ID:[id number] Provider Name:Sia Palma Address 1:[address] Phone Number: Address 2: Fax Number: City:[place] Selection Factors: State:[place] Patient Contact Information Contact Name:TELLO Relationship:Daughter Address: Work Phone: City:[place] Alternate Phone: [facility] Code:[place] Email: Financial Information Financial Class:Medicare Primary Plan Desc:MEDICARE INPATIENT Primary Plan Number:[id number] Secondary Plan Desc: Secondary Plan Number: Assessment Information [facility] CM Progress Note CM Note CM Note Notes: CM met with patient to assure follow up and/or access to PCP. Patient reports that although he has recently relocated to [place] from [place], he did have an appointment at the [facility] last month. I have called [facility] and confirmed that patient had 2 appointments at the clinic in May; 06/[address]Rachel Burnham, and 06/05 for an RN appointment. Per Janel ([facility]), patient attended an appointment in April as well. His medications, including Warfarin are prescribed through the clinic. Patient states that he has been staying at a friend of his daughter's apartment for the time being. I have provided him with information regarding the coordinated entry program and [facility] for assistance with community resources Date Signed: 06/23/2017 03:14 PM Electronically Signed By:Carolina Marquez RN LACE LACE Length of stay for Answers: 4-6 days current admission Acuity / Level of Answers: Yes Care: Did the patient have an inpatient admission? Comorbidities - select Answers: Diabetes (uncontrolled or all that apply controlled) Moderate or severe liver or renal disease Other Notes: peripheral neuropathy # of Emergency department Answers: 1-2 visits in the last 6 months Social determinants Answers: History of substance abuse (ETOH, street drugs, prescription drugs, etc.) Homelessness (street, detention) Score: 20 Date Signed: 06/27/2017 12:12 PM Electronically Signed By:Johana Ricketts RN [facility] CM Progress Note CM Note CM Note Notes: SNF has been recommended for patient. He was at the [facility] a year ago after his left [facility]. He is OK with a referral to that facility, as well as other facilities near [place]. He has a daughter in [place]. I sent referrals to [facility], [facility], [facility], and [facility]. Case Management will follow. Date Signed: 06/24/2017 03:56 PM Electronically Signed By:Manasa Hilton RN [facility] CM Progress Note CM Note CM Note Notes: Spoke w/pt re; dc SNF. Pt accepted by and [facility], pt would like to go to [facility] notified. Pt is supposed to get a refitting on his prosthetic tomorrow, he called [facility] to let them know he is in hospital. He was unsure if they were coming tomorrow, CM called and tried to leave message but unable to do so. Will follow up in am. DC Plan: [facility] Date Signed: 06/25/2017 04:55 PM Electronically Signed By:Johana Ricketts RN Case Management Discharge Plan Note Case Management Discharge Discharge Order Complete? Answers: Yes Patient to Obtain Answers: Other Notes: [facility] Medications Transportation Arranged Answers: Other Notes: [employer] will Pick (Date 06/27/2017 06:30 AM & Time) Faxed Final Orders Answers: Yes Family Notified Answers: Yes Discharge Comments Notes: D/w [employer], final orders faxed. [facility] at [facility] notified, RN to call report. Date Signed: 06/27/2017 12:24 PM Electronically Signed By:Johana Ricketts RN [facility] CM Progress Note CM Note CM Note Notes: [facility], transport to [employer] [facility] at 6:30. Final orders faxed, RN to call report. Pt given clothes for transport. Date Signed: 06/27/2017 04:53 PM Electronically Signed By:Johana Ricketts RN Intervention Information Intervention Type:*SHANTHI-Signed Date of Service:06/24/2017 11:53 AM Patient Type:Observation Staff Member:Gabbie Esparza Hours: Discipline: Severity: Comment:
== END 2017-06-27 18:18 | DRG 556 ==
LOC: EDUNIT# → F3E 15:11 → OBSVTOIN 06-24 13:33
PROVIDERS: ADMIT Internal Medicine; ATTEND Internal Medicine
DX: M79.605 Pain in left leg (principal); Y81.2 Prosthetic and other implants, materials and accessory general- and plastic-surgery devices associated with adverse incidents; Z89.512 Acquired absence of left leg below knee; N17.9 Acute kidney failure, unspecified; I48.2 Chronic atrial fibrillation; E11.49 Type 2 diabetes mellitus with other diabetic neurological complication; E11.22 Type 2 diabetes mellitus with diabetic chronic kidney disease; N18.3 Chronic kidney disease, stage 3 (moderate); R05 Cough; R63.4 Abnormal weight loss; D64.9 Anemia, unspecified; K21.9 Gastro-esophageal reflux disease without esophagitis; N40.0 Benign prostatic hyperplasia without lower urinary tract symptoms; F17.210 Nicotine dependence, cigarettes, uncomplicated; M19.90 Unspecified osteoarthritis, unspecified site; Z79.01 Long term (current) use of anticoagulants; Z95.0 Presence of cardiac pacemaker; Z87.440 Personal history of urinary (tract) infections
CPT/HCPCS: 84134-90; 97110-GO; 97110-GP; 97116-GP; 97162-GP; 97165-GO; 97530-GP; 97535-GO; G0378; G8978-GP-CK; G8979-GP-CI; G8987-GO-CI; G8988-GO-CI; J1815; J7512; Q9967